=== PATIENT | female | born 1965 | race Caucasian/White ===

== ENCOUNTER 2016-11-15 18:45 | Emergency (ER) | payer SELFPAY ==
--- NOTE | 2016-11-21 14:44 | ER ---
ADMIT: 11/15/2016 RM/LOC: ER [facility] MR#: [id number] [facility] [id number] CHELSEA CARABALLO [address] [place] [address] Emergency Room Report SEX: F AGE: 51 : 1965 DATE: 11/15/2016 ADDENDUM: CHIEF COMPLAINT: Leg pain. HISTORY OF PRESENT ILLNESS: This is a 51-year-old female, who said she is going outside on a porch, she slipped off the short porch and caught her leg between the porch in a table. This happened four days ago. She has just had increased pain and swelling in the right knee extending down to the lower leg. IMAGING: X-rays done of her tib-fib, it is negative for any fracture over- read by Dr. Boswell. CLINICAL IMPRESSION: Right leg contusion. JUAN DIEGO Otto / Lavell Minor MD / modl JOB #: [id number] CC: Lavell Minor MD, Attending Physician Umm Huynh MD, Family Physician
== END 2016-11-15 20:43 | disposition home or self-care (01) ==
LOC: ER 18:45
DX: S80.11XA Contusion of right lower leg, initial encounter (principal); F17.210 Nicotine dependence, cigarettes, uncomplicated; W23.1XXA Caught, crushed, jammed, or pinched between stationary objects, initial encounter